=== PATIENT | female | born 1975 | race African-American/Black ===

== ENCOUNTER 2018-09-07 20:31 | Observation (INO) ==
[2018-09-07] MEDS ORDERED: ASPIRIN 325 MG TABLET PO STA (21:05)
[2018-09-07 21:42] LABS: Basophils % 0.2 % (0.0-0.8); Hemoglobin 14.1 GM/DL (12.0-16.0); Immature Granulocytes % 0.3 %; Immature Granulocytes Absolute 0.03 #; Lymphocytes # 1.3 10*3/uL (1.4-4.0); Lymphocytes % 12.1 % (21.3-54.2); Mean Corpuscular HGB Conc 31.3 GM/DL (32-36); Mean Corpuscular Hemoglobin 29 PG (27-34); Mean Corpuscular Volume 91.5 FL (87-102); Mean Platelet Volume 11.9 FL (9.6-12.0); Monocytes # 0.4 10*3/uL (0.11-0.8); Monocytes % 3.8 % (1.7-12.7); Neutrophils # 8.7 10*3/uL (1.4-7.4); Neutrophils % 83.6 % (38.7-73.9); Platelet Count 204 T/CUMM (130-400); Red Blood Count 4.92 MC/CUMM (3.8-5.5); Red Cell Distribution Width 12.6 % (9.3-17.3); White Blood Count 10.4 T/CUMM (4-12)
[2018-09-07 22:09] LABS: PT Patient Result 10.6 SECS
[2018-09-07 22:10] LABS: Troponin I 0.026 NG/ML (0.00-0.045)
[2018-09-07 22:11] LABS: Alanine Aminotransferase 18 U/L (13-56); Albumin 3.5 G/DL (3.4-5.0); Alkaline Phosphatase 146 U/L (45-117); Aspartate Amino Transferase 16 U/L (0-37); Bilirubin,Total < 0.39 MG/DL (0.2-1.0); Blood Urea Nitrogen 11 MG/DL (7-18); Calcium 8.9 MG/DL (8.5-10.1); Glucose 170 MG/DL (74-106); Osmolality,Calculated 281.4 MOS/KG (273-304); Potassium 3.7 MMOL/L (3.5-5.1); Sodium 140 MMOL/L (136-145); Total Protein 7.9 G/DL (6.4-8.3)
[2018-09-08] MEDS ORDERED: NITROGLYCERIN SL 0.4 MG TABLET SL PRN (00:05)
[2018-09-08] MEDS ORDERED: ZALEPLON 5 MG CAPSULE PO PRN (00:06)
[2018-09-08] MEDS ORDERED: DOCUSATE SODIUM 100 MG CAPSULE PO PRN (00:06)
[2018-09-08] MEDS ORDERED: MORPHINE 4 MG/1 ML VIAL IV PRN (00:06)
[2018-09-08] MEDS ORDERED: ONDANSETRON 4 MG/2 ML VIAL IV PRN (00:06)
[2018-09-08] MEDS ORDERED: ACETAMINOPHEN 325 MG TABLET PO PRN (00:06)
[2018-09-08] MEDS ORDERED: ENOXAPARIN 40 MG/0.4 ML SYRINGE SUBCUT SCH ×2 (00:30→09:00)
[2018-09-08 03:02] LABS: Basophils % 0.2 % (0.0-0.8); Hematocrit 47.1 VOL% (35.7-47.0); Immature Granulocytes % 0.6 %; Immature Granulocytes Absolute 0.08 #; Lymphocytes % 13.7 % (21.3-54.2); Mean Corpuscular HGB Conc 31.8 GM/DL (32-36); Mean Corpuscular Hemoglobin 29 PG (27-34); Mean Corpuscular Volume 90.9 FL (87-102); Monocytes # 0.7 10*3/uL (0.11-0.8); Monocytes % 4.5 % (1.7-12.7); Neutrophils # 11.6 10*3/uL (1.4-7.4); Platelet Count 222 T/CUMM (130-400); Red Blood Count 5.18 MC/CUMM (3.8-5.5); Red Cell Distribution Width 12.7 % (9.3-17.3); White Blood Count 14.4 T/CUMM (4-12)
[2018-09-08 03:30] LABS: Calcium 8.9 MG/DL (8.5-10.1); Osmolality,Calculated 274.7 MOS/KG (273-304); Potassium 3.7 MMOL/L (3.5-5.1); Risk Ratio 3.7; Thyroid Stimulating Hormone 0.627 uIU/ml (0.358-3.74); VLDL CHOLESTEROL 22.6 MG/DL
[2018-09-08 17:22] VITALS: BP 129/77
[2018-09-09] MEDS ORDERED: ASPIRIN CHEW 81 MG TABLET PO SCH (09:00)
== END 2018-09-08 17:55 | disposition home or self-care (01) ==
LOC: N.EDINP 20:31 → N.ED 20:31 → N.TELEN 09-08 02:02
PROVIDERS: ADMIT Internal Medicine; ATTEND Internal Medicine